=== PATIENT | male | born 1965 | race American Indian/Alaskan Native ===

== ENCOUNTER 2019-10-17 11:00 | Observation (INO) | payer SELFPAY ==
[2019-10-17] MEDS ORDERED: SODIUM CHLORIDE 0.9% 250ML 250 ML IV ONE (11:04)
--- NOTE | 2019-10-17 11:05 | Emergency Department Report ---
ED Neuro Deficit HPI - General Chief Complaint: Weakness Stated Complaint: POSS STROKE Time Seen by Provider: 10/17/19 11:03 Source: patient, EMS (verbal report received from emergency medical services. EMS documentation not available at time of chart dictation ), RN notes reviewed Mode of arrival: Stretcher Limitations: No Limitations - History of Present Illness Initial Comments: The patient is a pleasant right hand dominant gentleman, 54 years old, possible history of hypertension, does not have a local primary care doctor. Brought to the hospital by emergency medical services as a possible code stroke. Last known well time 10:00 in the morning. Accu-Chek within normal limits in the field. Patient denies physical pain. Concerning symptoms include right upper extremity numbness, possible weakness, and possible facial droop. Symptoms are resolved fairly quickly. Patient had indicated that at one point in time, given having intermittent right upper extremity numbness for a few months. -: Sudden Location: right face, right arm History of same: Yes Place: home Worsens With: none On Anticoagulants: No Context: sudden onset - Related Data Home Medications: Home Medications Medication Instructions Recorded Confirmed Last Taken No Known Home Medications [No 10/17/19 10/17/19 Unknown Reported Home Medications] Allergies/Adverse Reactions: Allergies Allergy/AdvReac Type Severity Reaction Status Date / Time No Known Allergies Allergy Unverified 12/12/18 20:27 ED Review of Systems ROS: Stated complaint: POSS STROKE Other details as noted in HPI Constitutional: denies: fever Eyes: denies: eye discharge, vision change ENT: denies: epistaxis, congestion Respiratory: denies: wheezing Cardiovascular: denies: syncope Gastrointestinal: denies: abdominal pain Genitourinary: denies: dysuria Musculoskeletal: denies: back pain Skin: denies: lesions Neurological: weakness Hematological/Lymphatic: denies: easy bleeding ED Past Medical Hx - Social History Smoking Status: Never Smoker Substance Use Type: None - Medications Home Medications: Home Medications Medication Instructions Recorded Confirmed Last Taken Type No Known Home Medications [No 10/17/19 10/17/19 Unknown History Reported Home Medications] ED Neuro Physical Exam - General Limitations: No Limitations General appearance: alert Suspected Stroke: Yes - Head Head exam: Present: atraumatic, normocephalic - Eye Eye exam: Present: normal appearance, EOMI. Absent: nystagmus - ENT ENT exam: Present: normal orophraynx, mucous membranes moist, normal external ear exam, other (there is a small right-sided facial droop. There is no dysphonia. Lucid sentence structure.). Absent: normal exam - Neck Neck exam: Present: normal inspection, full ROM. Absent: tenderness, meningismus - Respiratory Respiratory exam: Present: normal lung sounds bilaterally. Absent: respiratory distress - Cardiovascular Cardiovascular Exam: Present: regular rate, normal rhythm, normal heart sounds. Absent: bradycardia, tachycardia, irregular rhythm, systolic murmur, diastolic murmur, rubs, gallop - GI/Abdominal GI/Abdominal exam: Present: soft. Absent: distended, guarding, rebound, rigid, pulsatile mass - Rectal Rectal exam: Present: deferred - Extremities Exam Extremities exam: Present: normal inspection, full ROM, other (2+ pulses noted in the bilateral upper and lower extremities. There is no palpable cord. negative Homans sign. Muscular compartments are soft. The pelvis is stable.). Absent: pedal edema, joint swelling, calf tenderness - Back Exam Back exam: Present: normal inspection, full ROM. Absent: tenderness, CVA tenderness (R), CVA tenderness (L), paraspinal tenderness, vertebral tenderness - Neurological Exam Neurological exam: Present: alert, oriented X3, other (initially there is a right-sided facial droop. The tongue deviates to the right. Extraocular movements are intact bilaterally. Facial sensation intact to light touch in the bilateral V1, V2, V3 distribution. There is no dysarthria. There is no dysphonia. Hearing is grossly intact.) - NIHSS Assessment Interval: Baseline 1a. Level of Consciousness: alert/keenly responsive 1b. LOC Questions: answers both correctly 1c. LOC Commands: performs tasks correctly 2. Best Gaze: normal 3. Visual: no visual loss 4. Facial Palsy: minor paralysis 5b. Motor Arm Right: no drift 5a. Motor Arm Left: no drift 6a. Motor Leg Left: no drift 6b. Motor Leg Right: no drift 7. Limb Ataxia: absent 8. Sensory: mild/moderate sensory loss 9. Best Language: no aphasia 10. Dysarthria: normal 11. Extinction/Inattention: no abnormality Total Score: 2 Stroke Severity: Minor Stroke - Psychiatric Psychiatric exam: Present: normal affect, normal mood - Skin Skin exam: Present: warm, dry, intact, normal color. Absent: rash ED Course Vital Signs 12/15/19 11:38 Temperature 98 F Pulse Rate 74 Respiratory 16 Rate Blood Pressure 179/108 O2 Sat by Pulse 97 Oximetry - Lab Data Result diagrams: 10/17/19 11:40 Lab Results 10/17/19 10/17/19 10/17/19 Range/Units 11:27 11:40 11:40 WBC 4.2 L (4.5-11.0) K/mm3 RBC 5.20 H (3.65-5.03) M/mm3 Hgb 15.3 H (11.8-15.2) gm/dl Hct 44.8 (35.5-45.6) % MCV 86 (84-94) fl MCH 29 (28-32) pg MCHC 34 (32-34) % RDW 14.0 (13.2-15.2) % Plt Count 160 (140-440) K/mm3 Lymph % (Auto) 45.6 H (13.4-35.0) % [place] % (Auto) 7.2 (0.0-7.3) % Eos % (Auto) 1.3 (0.0-4.3) % Baso % (Auto) 1.3 (0.0-1.8) % Lymph # 1.9 (1.2-5.4) K/mm3 [place] # 0.3 (0.0-0.8) K/mm3 Eos # 0.1 (0.0-0.4) K/mm3 Baso # 0.1 (0.0-0.1) K/mm3 Seg Neutrophils % 44.6 (40.0-70.0) % Seg Neutrophils # 1.9 (1.8-7.7) K/mm3 POC Glucose 82 (70-105) Plasma/Serum Alcohol < 0.01 (0-0.07) % - EKG Data -: EKG Interpreted by Or EKG shows normal: sinus rhythm Rate: normal 10/17/19 12:11 The EKG today shows a sinus rhythm, 78 bpm, there is a normal axis, the QTC is within normal limits, there is left ventricular hypertrophy, motion artifact, the EKG is abnormal, not consistent with ST elevation myocardial infarction. The EKG today is unchanged from prior EKG from December 2018. - Radiology Data Radiology results: report reviewed, image reviewed Noncontrast CT scan of the brain is negative for acute disease. - Medical Decision Making Differential diagnosis, including but not limited to: TIA, multiple sclerosis, stroke, cervical radiculopathy, trigeminal neuralgia Assessment and plan: 54-year-old gentleman with right-sided facial droop, right upper extremity numbness and possible weakness. Initially NIH score is 2 on my examination. Neurologic symptoms resolved at this point in time. Current NIH score is 0. He is not a TPA candidate at this time. As part of this department's protocol, we have requested emergency stroke neurology consultation, and he was evaluated by Dr. Toby Omalley, who agreed that patient was not a TPA candidate and did not require emergent endovascular imaging. We've recommended admission to the medical service for TIA workup. Aspirin ordered. Hospital physician, Dr. Levy has accepted care of the patient. Discussed this plan of care with the patient who verbalized understanding, and who is amenable to this plan of care. - Core Measures Measure Exclusions: not indicated - Thrombolytic Inclusion/Exclusion Thrombolytic Contraindications: Rapidily Improving s/s Critical care attestation.: If time is entered above; I have spent that time in minutes in the direct care of this critically ill patient, excluding procedure time. ED Disposition Clinical Impression: TIA (transient ischemic attack) Disposition: DC-09 OP ADMIT IP TO THIS HOSP Is pt being admited?: Yes Does the pt Need Aspirin: Yes Condition: Stable
--- NOTE | 2019-10-17 11:25 | Progress Note ---
Subjective Date of service: 10/17/19 Interval history: see my note about talking with EMS [facility] and the CT scan review at time of stroke alert... the BP largely elevated remainder of EMS assessment normal BP appears to be issue remainer of w/u is pending will follow up Thanks spoke to EMT's
--- NOTE | 2019-10-17 11:29 | Cat Scan Report ---
CT BRAIN: 10/17/2019 INDICATION / CLINICAL INFORMATION: Stroke symptoms. Right-sided weakness COMPARISON: None available. FINDINGS: BRAIN/INTRACRANIAL STRUCTURES: Unenhanced CT images of the brain demonstrate no evidence of acute int racranial abnormality. Ventricles and sulci are normal in size and shape. There is no evidence of ischemic injury, hemorrhage, or mass. There are no abnormal extra-axial fluid collections. EXTRACRANIAL STRUCTURES: Unremarkable. IMPRESSION: Negative unenhanced CT of the brain. These findings were discussed with Dr Lemos . in the emergency department at [address] scans at this location are performed using dose reduction to ALARA by means of automated expos ure control. Signer Name: Felipe Lorenz MD Signed: 10/17/2019 11:24 AM Workstation Name: [id number]
--- NOTE | 2019-10-17 11:38 | Emergency Department Report ---
ED Neuro Deficit HPI - General Chief Complaint: Neuro Symptoms/Deficit Stated Complaint: POSS STROKE Time Seen by Provider: 10/17/19 11:03 Source: patient - History of Present Illness Initial Comments: [employer] TeleStroke Metrics: LKW: 0930 Door Time: 1100 [employer] Contacted: 1103 [employer] at Bedside: 1113 NIHSS: 1118 Decision on Alteplase: Not to give as the patient's NIH stroke scale score is currently 0. Interventional Candidate: Not a candidate as his symptoms are not consistent with a large vessel proximal occlusion. Chief Complaint: Right arm numbness HPI: Asked to see this patient in emergent telemedicine consultation utilizing interactive audio and video technologies. Consultation was performed with assistance of ancillary / medical staff at bedside. Verbal consent to perform the examination with telemedicine was obtained. Patient agreed to proceed with the consultation for acute stroke protocol. 54-year-old right-handed -[place] male who comes to the emergency room by EMS as a stroke alert for right arm numbness. Patient does not take any aspirin or medications at baseline. He denies any past medical history. Patient did report that over the last several months, he has had intermittent right arm numbness. He denies any obvious provoking factors. He denies any current neck pain or recent neck trauma. Patient states that around 9:30 AM this morning, he was taking a shower when he again had some right arm and hand numbness. He did not notice any focal weakness. No speech problems. When he arrived in the ER, the ER attending noted some possible right facial asymmetry, right arm incoordination, and right arm numbness. NIH stroke scale score initially was possibly 3. Upon my evaluation, the patient has no further focal motor or sensory deficits. No aphasia. Head CT is negative. PMH: Possible hypertension SOC: Negative x3. Patient lives with family. 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 FMH: Negative for stroke. ROS: 13 point review of systems were reviewed with the patient, and are all negative with the exception of the aforementioned in the history of present illness. VS: Blood pressure 183/111, respirations 16, pulse 87, oxygen saturation 98% Exam: Patient is in no apparent distress. Patient appears as stated age. No obvious acute respiratory or cardiac distress. Patient is well groomed and well-nourished. 1a- LOC: Keenly responsive - 0 1b- LOC questions: Answers both questions correctly - 0 1c- LOC commands- Performs both tasks correctly- 0 2- Gaze: Normal; no gaze paresis or gaze deviation - 0 3- Visual [place]: normal, no Visual field deficit - 0 4- Facial movements: no facial palsy - 0 5- Upper limb motor - no drift - 0 6- Lower limb motor - no drift - 0 7- Limb Coordination: absent ataxia - 0 8- Sensory: no sensory loss - 0 9- Language - No aphasia - 0 10- Speech - No dysarthria -0 11- Neglect / Extinction - none found - 0 NIHSS score: 0 Diagnostic Data: CT of the head showed no acute intracranial process Blood glucose 82 Medical Data Reviewed: 1.Data?reviewed include clinical labs, radiology,?and medical tests; 2.Tests?results discussed w/performing or interpreting physician; 3.Obtaining/reviewing old medical records; 4.Obtaining?case history from another source; 5.Independent?review of image, tracing, or specimen. Medical Decision Making: - Extensive number of diagnosis or management options are considered below. - Extensive amount of complex data reviewed. - High risk of complication and/or morbidity or mortality are associated with differential diagnostic considerations below. - There may be?uncertain?outcome and increased probability of prolonged functional impairment or high probability of severe prolonged functional impairment associated with some of these differential diagnosis. Differential Diagnosis for Stroke: 1.?Cardioembolic?stroke 2. Small vessel disease/lacune 3. Thromboembolic, [id number] mechanism 4.?Hypercoagulable?state-related infarct 5. Transient ischemic attack 6. Thrombotic mechanism, large artery disease Assessment: 1. Possible left MCA TIA/stroke 2. Hypertension Recommendations: Patient can be admitted to the hospital for further work-up of his symptoms. Start the patient on aspirin 325 mg daily. Allow permissive hypertension. Check MRI brain without contrast to rule out any acute intracranial process. Check CTA of the head and neck to evaluate his intracranial and extracranial blood vessels if renal function permits. If unable to do CTA, they can do MRA of the head and neck without contrast. Could also consider a MRI of the cervical spine without contrast to rule out any cervical cord pathology given he has been having symptoms in his right arm over the last several months. Check echocardiogram to gauge his cardiac function. Maintain the patient on telemetry to look for paroxysmal atrial fibrillation. Check hemoglobin A1c and lipid panel. Consult PT, OT, and ST. Continue supportive care. Plan of care was discussed with the patient. Thank you for allowing [employer] to participate in the care of your patient. Please call me, Dr. Segovia, with any questions at [phone]. Case discussed with the ER staff and Dr. Lemos. Critical Care notation: I was called to see this critical patient emergently. I personally evaluated this critical patient for acute stroke evaluation, and determining their eligibility for IV Alteplase and interventional therapies. I have spent approximately 10 minutes with the patient, including time at bedside, time discussing the case with other physicians, reviewing plan of care, and time independently reviewing the records and scans. - Related Data Home Medications: Home Medications Medication Instructions Recorded Confirmed Last Taken No Known Home Medications [No 10/17/19 10/17/19 Unknown Reported Home Medications] Allergies/Adverse Reactions: Allergies Allergy/AdvReac Type Severity Reaction Status Date / Time No Known Allergies Allergy Unverified 12/12/18 20:27 ED Review of Systems ROS: Stated complaint: POSS STROKE Other details as noted in HPI ED Past Medical Hx - Social History Smoking Status: Never Smoker Substance Use Type: None - Medications Home Medications: Home Medications Medication Instructions Recorded Confirmed Last Taken Type No Known Home Medications [No 10/17/19 10/17/19 Unknown History Reported Home Medications] ED Neuro Physical Exam - General General appearance: alert, in no apparent distress Suspected Stroke: Yes - NIHSS Assessment Interval: Baseline 1a. Level of Consciousness: alert/keenly responsive 1b. LOC Questions: answers both correctly 1c. LOC Commands: performs tasks correctly 2. Best Gaze: normal 3. Visual: no visual loss 4. Facial Palsy: normal symmetrical movement 5b. Motor Arm Right: no drift 5a. Motor Arm Left: no drift 6a. Motor Leg Left: no drift 6b. Motor Leg Right: no drift 7. Limb Ataxia: absent 8. Sensory: normal 9. Best Language: no aphasia 10. Dysarthria: normal 11. Extinction/Inattention: no abnormality Total Score: 0 Stroke Severity: No Stroke Symptoms - Lab Data Lab Results 10/17/19 Range/Units 11:27 POC Glucose 82 (70-105) Critical care attestation.: If time is entered above; I have spent that time in minutes in the direct care of this critically ill patient, excluding procedure time. ED Disposition Clinical Impression: TIA (transient ischemic attack) Disposition: DC-09 OP ADMIT IP TO THIS HOSP Is pt being admited?: Yes Does the pt Need Aspirin: Yes Condition: Stable
[2019-10-17 11:57] LABS: Basophils # (Auto) 0.1 K/mm3 (0.0-0.1); Basophils % (Auto) 1.3 % (0.0-1.8); Eosinophils # (Auto) 0.1 K/mm3 (0.0-0.4); Eosinophils % (Auto) 1.3 % (0.0-4.3); Hematocrit 44.8 % (35.5-45.6); Hemoglobin 15.3 gm/dl (11.8-15.2); Lymphocytes # (Auto) 1.9 K/mm3 (1.2-5.4); Lymphocytes % (Auto) 45.6 % (13.4-35.0); Mean Corpuscular HGB Conc 34 % (32-34); Mean Corpuscular Volume 86 fl (84-94); Monocytes # (Auto) 0.3 K/mm3 (0.0-0.8); Monocytes % (Auto) 7.2 % (0.0-7.3); Platelet Count 160 K/mm3 (140-440)
[2019-10-17 12:10] LABS: INR 1.04 (0.87-1.13); Partial Thromboplastin Time 26.9 Sec. (24.2-36.6); Thrombin Time 14.8 Sec. (15.1-19.6)
[2019-10-17] MEDS ORDERED: ASPIRIN 81 MG TAB CHEW PO ONE (12:13)
[2019-10-17 12:17] LABS: Creatine Kinase MB 1.5 ng/mL (0.0-4.0)
[2019-10-17 12:18] LABS: Alanine Aminotransferase 7 units/L (7-56); Albumin 4.3 g/dL (3.9-5); BUN/Creatinine Ratio 15; Blood Urea Nitrogen 16 mg/dL (9-20); Calcium 9.3 mg/dL (8.4-10.2); Hemolysis Index 5
[2019-10-17] MEDS ORDERED: hydroCHLOROthiazide 25 MG TAB PO ONE (13:10)
[2019-10-17] MEDS ORDERED: amLODIPine 5 MG TAB PO ONE (13:10)
--- NOTE | 2019-10-17 13:41 | XRay Report ---
CERVICAL SPINE, 5 VIEWS INDICATION / CLINICAL INFORMATION: weakness. COMPARISON: None available. FINDINGS: Vertebral body heights and disc spaces are well-preserved. Prominent anterior osteophytes are present at C5-C7. No visible fracture or malalignment noted. IMPRESSION: 1. Mildly prominent anterior osteophytes, C5-C7. 2. No other significant osseous abnormality. Signer Name: Marlene Grayson MD Signed: 10/17/2019 1:36 PM Workstation Name: [id number]
[2019-10-17] MEDS ORDERED: hydrALAZINE 20 MG/1 ML INJ ONE (13:57)
[2019-10-17] MEDS ORDERED: hydrALAZINE 20 MG/1 ML INJ IV ONE (13:59)
[2019-10-17 14:06] VITALS: BP 154/81
--- NOTE | 2019-10-17 14:12 | Progress Note ---
Subjective Date of service: 10/17/19 Interval history: please note that the CT reading from radiology cocurs with stat opinion at time of the stroke alert. advise Tx HTN Objective - Vital Sign Vital Signs - 12hr 10/17/19 10/17/19 10/17/19 11:38 12:15 14:01 Temperature 98 F Pulse Rate 74 74 Respiratory 16 16 Rate Blood Pressure 179/108 171/108 Blood Pressure 172/109 [Left] O2 Sat by Pulse 97 96 Oximetry 10/17/19 14:04 Temperature Pulse Rate 84 Respiratory 16 Rate Blood Pressure Blood Pressure 154/81 [Left] O2 Sat by Pulse 99 Oximetry - Laboratory Findings CBC and BMP: 10/17/19 11:40 10/17/19 11:40 Abnormal Lab Findings: Abnormal Labs 10/17/19 10/17/19 10/17/19 11:40 11:40 11:40 WBC 4.2 L RBC 5.20 H Hgb 15.3 H Lymph % (Auto) 45.6 H Thrombin Time 14.8 L Carbon Dioxide 19 L
--- NOTE | 2019-10-17 14:24 | Event Note ---
Date: 10/17/19 54 YO Male with HTN, Medication Noncompliance presents to ED for evaluation. Pt states that he experienced Right arm numbness, tingling while taking a shower this morning. Pt walked out of the shower and notified EMS. Pt states that he was concerned that he may be having a stroke. EMS notified and upon arrival a code stroke was called. The patient was transported to [facility]. Pt seen and evaluated in ED. Pt was found to have Uncontrolled HTN due to medication noncompliance. Pt did not have any neurologic deficit. Pt symptoms resolved in transit to hospital. Teleneurology consulted in ED. Pt found to have symptoms consistent with Radiculopathy. Pt medically optimized and treated with antihypertensive therapy. Pt discharged home and instructed to f/u pcp 3-5 days with blood pressure log. Pt counseled regarding Cardiovascular disease risk reduction. Pt counseled regarding balanced diet, increased physical activity. Pt discharged on antiplatelet therapy and counseled to have age appropriate screening as per PCP. - General Limitations: No Limitations General appearance: WNWD, No acute distress, Pt resting in bed playing a game on his smartphone while holding the phone in both hands. - Head Head exam: Present: atraumatic, normocephalic - Eye Eye exam: Present: normal appearance, EOMI. Absent: nystagmus - ENT ENT exam: Present: normal orophraynx, mucous membranes moist, normal external ear exam, There is no dysphonia. Lucid sentence structure.).: normal exam - Neck Neck exam: Present: normal inspection, full ROM. Absent: tenderness, meningismus - Respiratory Respiratory exam: Present: normal lung sounds bilaterally. Absent: respiratory distress - Cardiovascular Cardiovascular Exam: Present: regular rate, normal rhythm, normal heart sounds. Absent: bradycardia, tachycardia, irregular rhythm, systolic murmur, diastolic murmur, rubs, gallop - GI/Abdominal GI/Abdominal exam: Present: soft. Absent: distended, guarding, rebound, rigid, pulsatile mass - Rectal Rectal exam: Present: deferred - Extremities Exam Extremities exam: Present: normal inspection, full ROM, other (2+ pulses noted in the bilateral upper and lower extremities. There is no palpable cord. negative Homans sign. Muscular compartments are soft. The pelvis is stable.). Absent: pedal edema, joint swelling, calf tenderness - Back Exam Back exam: Present: normal inspection, full ROM. Absent: tenderness, CVA tenderness (R), CVA tenderness (L), paraspinal tenderness, vertebral tenderness - Neurological Exam Neurological exam: Present: alert, oriented X3,. Extraocular movements are intact bilaterally. Facial sensation intact to light touch in the bilateral V1, V2, V3 distribution. There is no dysarthria. There is no dysphonia. Hearing is grossly intact.) CN 2-12 intact. No focal deficit. - Psychiatric Psychiatric exam: Present: normal affect, normal mood - Skin Skin exam: Present: warm, dry, intact, normal color. Absent: rash
--- NOTE | 2019-10-17 17:26 | Consultation ---
History of Present Illness Consult date: 10/17/19 Reason for Consult: Stroke History of present illness: [facility] Date of Service: 10/17/2019 16:18:25 Impression: RO Acute Ischemic Stroke Comments: not iv tpa candidate as recurrence of sxs from prior to 1100 am, with lkw greater than 4.5 hrs and resolution of sxs again. Low suspicion for large vessel occlusive disease Metrics: Last Known Well: 10/17/2019 11:00:00 [facility] Notification Time: 10/17/2019 16:16:13 Arrival Time: 10/17/2019 14:56:00 Stamp Time: 10/17/2019 16:18:25 Time First Login Attempt: 10/17/2019 16:26:00 Video Start Time: 10/17/2019 16:26:00 Symptoms: N/V/AMS NIHSS Start Assessment Time: 10/17/2019 16:29:00 Patient is not a candidate for tPA. Patient was not deemed candidate for tPA thrombolytics because of Last Well Known Above 4.5 Hours. Video End Time: 10/17/2019 16:37:00 CT head showed evolving subcortical stroke in left hemisphere. Advanced imaging will be obtained to evaluate intracranial/extracranial vessels. ER Physician notified of the decision on thrombolytics management on 10/17/2019 16:38:00 Our recommendations are outlined below. Recommendations: Activate Stroke Protocol Admission/Order Set Stroke/Telemetry Floor Neuro Checks Bedside Swallow Eval DVT Prophylaxis IV Fluids, Normal Saline Head of Bed Below 30 Degrees Euglycemia and Avoid Hyperthermia (PRN Acetaminophen) Antiplatelet Therapy Recommended iv fluids, telemetry, prn meds for nausea Recommended Scan: MRI Head Without Contrast MRA Head Without Contrast Carotid Dopplers Echocardiogram - Transthoracic Echocardiogram Lipid Panel to Be Obtained, if Not Done in the Last Three Months Therapies: Physical Therapy, Occupational Therapy, Speech Therapy Assessment When Applicable Dysphaghia Screen: Swallow Evaluation, Bedside NPO Until Swallow Evaluation DVT prophylaxis: Choice of Primary Team Disposition: If needed consider Follow up with Neurology as inpatient. Sign Out: Discussed with Emergency Department Provider History of Present Illness: Patient is a 54 year old Male. Patient was brought by EMS for symptoms of N/V/AMS Patient was seen as a stroke this am with R sided weakness/numbness and nausea/vomiting. He had resolution of sxs and CT scan head was negative and he was d/c'd him. He had nausea/vomiting and R sided sxs again with confusion and EMS was called to the house. BP 113/76, pulse of 76, and BGL 162, and in ED bp 100/64. He had projectile vomit in ED and has now near resolution of sxs again. He is able to state his name, month, where he is, follow all commands, repeat statement and name objects. He provides no additional hx as to whether he has abraham/cp/neck pain/dizziness. CT head showed no acute hemorrhage or acute core infarct. Examination: BP(see hpi), Pulse(see hpi), Blood Glucose(see hpi) 1A: Level of Consciousness - Alert; keenly responsive + 0 1B: Ask Month and Age - Both Questions Right + 0 1C: Blink Eyes & Squeeze Hands - Performs Both Tasks + 0 2: Test Horizontal Extraocular Movements - Normal + 0 3: Test Visual Malone - No Visual Loss + 0 4: Test Facial Palsy (Use Grimace if Obtunded) - Normal symmetry + 0 5A: Test Left Arm Motor Drift - No Drift for 10 Seconds + 0 5B: Test Right Arm Motor Drift - No Drift for 10 Seconds + 0 6A: Test Left Leg Motor Drift - No Drift for 5 Seconds + 0 6B: Test Right Leg Motor Drift - No Drift for 5 Seconds + 0 7: Test Limb Ataxia (FNF/Heel-Alegria) - No Ataxia + 0 8: Test Sensation - Normal; No sensory loss + 0 9: Test Language/Aphasia - Normal; No aphasia + 0 10: Test Dysarthria - Normal + 0 11: Test Extinction/Inattention - No abnormality + 0 NIHSS Score: 0 Patient was informed the Neurology Consult would happen via TeleHealth consult by way of interactive audio and video telecommunications and consented to receiving care in this manner. Due to the immediate potential for life-threatening deterioration due to underlying acute neurologic illness, I spent 35 minutes providing critical care. This time includes time for face to face visit via telemedicine, review of medical records, imaging studies and discussion of findings with providers, the patient and/or family. Dr Chanel Sharma [facility] Case [id number] Medications and Allergies Allergies Allergy/AdvReac Type Severity Reaction Status Date / Time No Known Allergies Allergy Unverified 12/12/18 20:27 Home Medications Medication Instructions Recorded Confirmed Last Taken Type Aspirin 325 mg PO QDAY #30 tablet 10/17/19 Unknown Rx Ibuprofen [Motrin] 400 mg PO Q8H PRN #24 tablet 10/17/19 Unknown Rx Simvastatin 20 mg PO QHS #30 tablet 10/17/19 Unknown Rx amLODIPine 5 mg PO DAILY #30 tab 10/17/19 Unknown Rx hydroCHLOROthiazide [Hctz] 12.5 mg PO QDAY #30 capsule 10/17/19 Unknown Rx Physical Examination - Vital Signs Vital Signs: Vital Signs Temp Pulse Resp BP Pulse Ox 98 F 74 16 179/108 97 10/17/19 11:38 10/17/19 11:38 10/17/19 11:38 10/17/19 11:38 10/17/19 11:38 Results - Laboratory Findings CBC and BMP: 10/17/19 11:40 10/17/19 11:40 Abnormal Lab Findings: Abnormal Labs 10/17/19 10/17/19 10/17/19 11:40 11:40 11:40 WBC 4.2 L RBC 5.20 H Hgb 15.3 H Lymph % (Auto) 45.6 H Thrombin Time 14.8 L Carbon Dioxide 19 L
--- NOTE | 2019-10-18 10:59 | Consultation ---
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 The patient was admitted to the hospital at this time through the Emergency Room. He is admitted because of the sudden onset of slurred speech, dizziness, right-sided weakness. He apparently gotten up this morning and unobserved, began to abruptly have problems with balance, numbness, weakness, slight degree of slurred speech. EMS was called. On presentation, the EMS worker stated to me that there were no residual neurological findings. He was completely recovered at that time he was seen. He was transferred to the hospital. His blood sugars were normal. His blood pressure was elevated at 197/120. Further evaluation during that period of time did not reveal any cardiac irregularities. His pulse oximeter was normal. His blood sugar was normal. Evaluation on stroke scale was 0 during that assessment. The patient seen at the time of the stroke alert. No neurological findings are currently present. Benign exam. Cranial nerves intact. No drift. Moves well. Speech is clear, oriented. I did review his CT scan of the brain immediately at the time of the assessment. I did not see any focal abnormalities. Dinero and white matter were normal. Pineal gland in the midline. No evidence of any edema, hemorrhage was noted. At this point, the CT scan is entirely clear. We would recommend further workup including electrolytes, CBC, and diff, formal EKG and more comprehensive ED stroke evaluation. At this point, the patient's condition appears stable. May proceed to further workup at this point. JOB# [id number] CAROLANN/TRUPTI
== END 2019-10-17 16:05 | disposition home or self-care (01) ==
LOC: ED 11:00 → 3A 12:26
PROVIDERS: ADMIT Internal Medicine; ATTEND Internal Medicine
DX: G45.9 Transient cerebral ischemic attack, unspecified (principal); I10 Essential (primary) hypertension
CPT/HCPCS: 36415; 70450; 72040; 80053; 82550; 82553; 82962; 84484; 85025; 85610; 85670; 85730; 93005; 93010; 96374; 99284; G0378; J0360; 80320; G0480

== ENCOUNTER 2019-10-17 16:13 | Inpatient (IN) | payer OTHER ==
--- NOTE | 2019-10-17 16:27 | Emergency Department Report ---
- General Stated complaint: POSS STROKE Time Seen by Provider: 10/17/19 16:20 Source: patient Mode of arrival: Stretcher Limitations: Physical Limitation - History of Present Illness Initial comments: Patient is a 54-year-old male that presents emergency with complaints of right- sided weakness and slurred speech and right-sided facial droop. Patient states his symptoms started approximately 4.5 hours ago resolved and then came back. Patient states she was here today and discharged home from the ER. Patient denies chest pain. Patient denies shortness of breath. Patient states his symptoms are slowly improving with time. Patient states his weakness is better with rest. MD Complaint: focal weakness -: Sudden Location: RUE, RLE, R face Severity: severe Consistency: constant Improves with: rest, other Worsens with: movement Associated Symptoms: denies: chest pain, confusion, dark stools, diaphoresis, dysuria, easy bruising, fever/chills, headaches, loss of appetite, nausea/vomiting, myalgias, rash, shortness of breath, syncope - Related Data Previous Rx's Medication Instructions Recorded Last Taken Type Aspirin 325 mg PO QDAY #30 tablet 10/17/19 Unknown Rx Simvastatin 20 mg PO QHS #30 tablet 10/17/19 Unknown Rx amLODIPine 5 mg PO DAILY #30 tab 10/17/19 Unknown Rx hydroCHLOROthiazide [Hctz] 12.5 mg PO QDAY #30 capsule 10/17/19 Unknown Rx Allergies Allergy/AdvReac Type Severity Reaction Status Date / Time No Known Allergies Allergy Unverified 12/12/18 20:27 ED Review of Systems ROS: Stated complaint: POSS STROKE Other details as noted in HPI Constitutional: weakness. denies: chills, fever Eyes: denies: eye pain, eye discharge, vision change ENT: denies: ear pain, throat pain Respiratory: denies: cough, shortness of breath, wheezing Cardiovascular: denies: chest pain, palpitations Endocrine: no symptoms reported Gastrointestinal: denies: abdominal pain, nausea, diarrhea Genitourinary: denies: urgency, dysuria Musculoskeletal: denies: back pain, joint swelling, arthralgia Skin: denies: rash, lesions Neurological: weakness. denies: headache, paresthesias Psychiatric: denies: anxiety, depression Hematological/Lymphatic: denies: easy bleeding, easy bruising ED Past Medical Hx - Past Medical History Previous Medical History?: Yes Hx Hypertension: Yes - Surgical History Past Surgical History?: No - Family History Family history: no significant - Social History Smoking Status: Never Smoker Substance Use Type: None - Medications Home Medications: Home Medications Medication Instructions Recorded Confirmed Last Taken Type Aspirin 325 mg PO QDAY #30 tablet 10/17/19 10/17/19 Unknown Rx Simvastatin 20 mg PO QHS #30 tablet 10/17/19 10/17/19 Unknown Rx amLODIPine 5 mg PO DAILY #30 tab 10/17/19 10/17/19 Unknown Rx hydroCHLOROthiazide [Hctz] 12.5 mg PO QDAY #30 capsule 10/17/19 10/17/19 Unknown Rx ED Physical Exam - General Limitations: No Limitations General appearance: alert, in no apparent distress - Head Head exam: Present: atraumatic, normocephalic - Eye Eye exam: Present: normal appearance, PERRL Pupils: Present: normal accommodation - ENT ENT exam: Present: mucous membranes moist - Neck Neck exam: Present: normal inspection - Respiratory Respiratory exam: Present: normal lung sounds bilaterally. Absent: respiratory distress, wheezes, rales - Cardiovascular Cardiovascular Exam: Present: regular rate, normal rhythm. Absent: systolic murmur, diastolic murmur, rubs, gallop - GI/Abdominal GI/Abdominal exam: Present: soft, normal bowel sounds - Rectal Rectal exam: Present: deferred - Extremities Exam Extremities exam: Present: normal inspection - Back Exam Back exam: Present: normal inspection - Neurological Exam Neurological exam: Present: alert, oriented X3 - Psychiatric Psychiatric exam: Present: normal affect, normal mood - Skin Skin exam: Present: warm, dry, intact, normal color. Absent: rash - Assessment Assessment Interval: Baseline - Level of Consciousness 1a. Level of Consciousness: alert/keenly responsive - LOC Questions 1b. LOC Questions: answers both correctly - LOC Command 1c. LOC Commands: performs tasks correctly - Best Gaze 2. Best Gaze: normal - Visual 3. Visual: no visual loss - Facial Palsy 4. Facial Palsy: minor paralysis - Motor Arm 5a. Motor Arm Left: no drift 5b. Motor Arm Right: no drift - Motor Leg 6a. Motor Leg Left: no drift 6b. Motor Leg Right: no drift - Limb Ataxia 7. Limb Ataxia: absent - Sensory 8. Sensory: normal - Best Language 9. Best Language: no aphasia - Dysarthria 10. Dysarthria: mild/moderate dysarthria - Extinction and Inattention 11. Extinction/Inattention: no abnormality - Scoring Total Score: 2 Stroke Severity: Minor Stroke ED Course Vital Signs 10/17/19 10/17/19 10/17/19 16:30 16:31 16:45 Temperature 98.9 F Pulse Rate 91 H 75 Respiratory 18 Rate Blood Pressure 100/58 100/64 105/62 Blood Pressure 108/64 [Right] O2 Sat by Pulse 100 Oximetry 10/17/19 10/17/19 10/17/19 17:16 17:30 17:45 Temperature Pulse Rate 88 75 77 Respiratory Rate Blood Pressure 95/63 100/54 104/58 Blood Pressure [Right] O2 Sat by Pulse 95 Oximetry 10/17/19 10/17/19 10/17/19 18:00 18:18 18:30 Temperature Pulse Rate 65 86 80 Respiratory 21 25 H Rate Blood Pressure 102/65 102/65 102/65 Blood Pressure [Right] O2 Sat by Pulse 96 96 99 Oximetry 10/17/19 10/17/19 10/17/19 18:46 19:00 19:15 Temperature Pulse Rate 85 79 73 Respiratory 12 20 18 Rate Blood Pressure 119/77 127/84 133/82 Blood Pressure [Right] O2 Sat by Pulse 93 98 99 Oximetry 10/17/19 10/17/19 10/17/19 19:30 19:40 19:50 Temperature Pulse Rate 75 76 77 Respiratory 17 17 20 Rate Blood Pressure 142/83 127/84 152/92 Blood Pressure [Right] O2 Sat by Pulse 97 98 96 Oximetry 10/17/19 10/17/19 10/17/19 20:00 20:10 20:20 Temperature Pulse Rate 75 69 91 H Respiratory 17 14 19 Rate Blood Pressure 152/92 142/94 145/88 Blood Pressure [Right] O2 Sat by Pulse 93 93 89 Oximetry 10/17/19 10/17/19 10/17/19 20:30 20:40 20:50 Temperature Pulse Rate 81 82 78 Respiratory 22 19 17 Rate Blood Pressure 145/88 151/89 149/87 Blood Pressure [Right] O2 Sat by Pulse 98 97 90 Oximetry 10/17/19 21:00 Temperature Pulse Rate 86 Respiratory 18 Rate Blood Pressure 149/87 Blood Pressure [Right] O2 Sat by Pulse 81 L Oximetry - Reevaluation(s) Reevaluation #1: I discussed all results with patient. Patient agrees with plan of care. Patient will be admitted to the hospitalist service. 10/17/19 19:02 - Consultations Consultation #1: Hospitalist consultation for admission. Hospitalist the patient. 10/17/19 19:01 ED Medical Decision Making - Lab Data Result diagrams: 10/17/19 18:02 10/17/19 16:45 - EKG Data -: EKG Interpreted by Me EKG shows normal: sinus rhythm, axis, intervals, QRS complexes, ST-T waves Rate: normal - Radiology Data Radiology results: report reviewed NECK CT ANGIOGRAM 10/17/2019 HISTORY: Weakness. FINDINGS: Contrast-enhanced CT angiographic images of the neck were obtained. In addition to the axial images, sagittal and coronal reformatted images were obtained. In addition, 3 plane MIP reconstructions were produced. NASCET like criteria were used in this hossein luation. The carotid bifurcations demonstrate no evidence of carotid bifurcation stenosis or significant abnormality. Internal and common carotid arteries are unremarkable. Vertebral arteries are relatively hypoplastic on a developmental basis, but otherwise unremarkable. Visualized portions of the aortic arch are unremarkable. IMPRESSION: No significant abnormality. No evidence of carotid bifurcation stenosis. HEAD CT ANGIOGRAM 10/17/2019 HISTORY: Weakness FINDINGS: Contrast-enhanced CT angiographic images of the intracranial circulation were obtained. In addition to the axial images, sagittal and coronal reformatted images were obtained. In addition, 3 plane MIP reconstructions were produced. There is no evidence of acute abnormality. Vascular contours are unremarkable the level of the skull base and [place] of [place]. There is no evidence of vessel occlusion or significant stenosis. Vertebral basilar system is unremarkable. The basilar artery is relatively hypoplastic on a developmental basis, with prominent bilateral posterior communicating arteries noted. This is a normal variant. IMPRESSION: No significant abnormality. CT BRAIN: 10/17/2019 at 1620 hours ET INDICATION / CLINICAL INFORMATION: neuro deficits <6hrs or sx present upon awakening. COMPARISON: CT brain 10/17/2019 at 1107 hours ET FINDINGS: BRAIN/INTRACRANIAL STRUCTURES: Unenhanced CT images of the brain were obtained and compared to the exam obtained 5 hours earlier. There has been interval development of visible hypoattenuation in the region of the left centrum semiovale and upper internal capsule, consistent with early evolving subcortical ischemic changes. There is no evidence of hemorrhage. The brain parenchyma is otherwise normal. There is no evidence of mass effect at this time. There are no abnormal extra-axial fluid collections. EXTRACRANIAL STRUCTURES: Unremarkable. IMPRESSION: Findings consistent with evolving left sided subcortical infarct. - Medical Decision Making Patient is a 54-year-old mellitus emergency room for second time today with strokelike symptoms. Patient's was discharged earlier from the ER with similar symptoms. Patient returned and had a CT done which shows evolving stroke. Neurology was consulted and recommendations were received. Neurology recommended CTAs. CTA of the head and neck were negative for acute findings. Patient admitted to the hospitalist service. Patient's labs essentially unremarkable. - Differential Diagnosis CVA, weakness, slurred speech, facial droop Critical Care Time: Yes Critical care time in (mins) excluding proc time.: 35 Critical care attestation.: If time is entered above; I have spent that time in minutes in the direct care of this critically ill patient, excluding procedure time. Critical Care Time: 35 minutes ED Disposition Clinical Impression: Weakness, Right sided weakness, Facial droop Stroke (cerebrum) Qualifiers: CVA mechanism: unspecified Qualified Code(s): I63.9 - Cerebral infarction, unspecified Disposition: DC-09 OP ADMIT IP TO THIS HOSP Is pt being admited?: Yes Does the pt Need Aspirin: No Condition: Critical Time of Disposition: 19:01
--- NOTE | 2019-10-17 17:01 | Cat Scan Report ---
CT BRAIN: 10/17/2019 at 1620 hours ET INDICATION / CLINICAL INFORMATION: neuro deficits <6hrs or sx present upon awakening. COMPARISON: CT brain 10/17/2019 at 1107 hours ET FINDINGS: BRAIN/INTRACRANIAL STRUCTURES: Unenhanced CT images of the brain were obtained and compared to the ex am obtained 5 hours earlier. There has been interval development of visible hypoattenuation in the re gion of the left centrum semiovale and upper internal capsule, consistent with early evolving subcort ical ischemic changes. There is no evidence of hemorrhage. The brain parenchyma is otherwise normal. There is no evidence of mass effect at this time. There are no abnormal extra-axial fluid collections. EXTRACRANIAL STRUCTURES: Unremarkable. IMPRESSION: Findings consistent with evolving left sided subcortical infarct. All CT scans at this location are performed using dose reduction to ALARA by means of automated expos ure control. Signer Name: Felipe Lorenz MD Signed: 10/17/2019 4:57 PM Workstation Name: [id number]
[2019-10-17 18:01] LABS: BUN/Creatinine Ratio 11; Blood Urea Nitrogen 18 mg/dL (9-20); Calcium 9.6 mg/dL (8.4-10.2); Hemolysis Index 44
[2019-10-17 18:06] LABS: INR 1.02 (0.87-1.13)
[2019-10-17 18:07] LABS: Partial Thromboplastin Time 21.1 Sec. (24.2-36.6)
[2019-10-17 18:07] LABS: Hematocrit 44.8 % (35.5-45.6); Hemoglobin 15.2 gm/dl (11.8-15.2); Mean Corpuscular HGB Conc 34 % (32-34); Mean Corpuscular Volume 87 fl (84-94); Platelet Count 174 K/mm3 (140-440); Red Blood Count 5.15 M/mm3 (3.65-5.03); Red Cell Distribution Width 14.2 % (13.2-15.2)
--- NOTE | 2019-10-17 18:55 | Cat Scan Report ---
NECK CT ANGIOGRAM 10/17/2019 HISTORY: Weakness. FINDINGS: Contrast-enhanced CT angiographic images of the neck were obtained. In addition to the axia l images, sagittal and coronal reformatted images were obtained. In addition, 3 plane MIP reconstruct ions were produced. NASCET like criteria were used in this evaluation. The carotid bifurcations demonstrate no evidence of carotid bifurcation stenosis or significant abnor mality. Internal and common carotid arteries are unremarkable. Vertebral arteries are relatively hypoplastic on a developmental basis, but otherwise unremarkable. Visualized portions of the aortic arch are unremarkable. IMPRESSION: No significant abnormality. No evidence of carotid bifurcation stenosis. All CT scans at this location are performed using dose reduction to ALARA by means of automated expos ure control. Signer Name: Felipe Lorenz MD Signed: 10/17/2019 6:50 PM Workstation Name: [id number]
--- NOTE | 2019-10-17 19:01 | Cat Scan Report ---
HEAD CT ANGIOGRAM 10/17/2019 HISTORY: Weakness FINDINGS: Contrast-enhanced CT angiographic images of the intracranial circulation were obtained. In addition to the axial images, sagittal and coronal reformatted images were obtained. In addition, 3 p elvia MIP reconstructions were produced. There is no evidence of acute abnormality. Vascular contours are unremarkable the level of the skull base and [place] of [place]. There is no evidence of vessel occlusion or significant stenosis. Vertebral basilar system is unremarkable. The basilar artery is relatively hypoplastic on a developme ntal basis, with prominent bilateral posterior communicating arteries noted. This is a normal variant . IMPRESSION: No significant abnormality. All CT scans at this location are performed using dose reduction to ALARA by means of automated expos ure control. Signer Name: Felipe Lorenz MD Signed: 10/17/2019 6:57 PM Workstation Name: [id number]
--- NOTE | 2019-10-17 19:05 | Emergency Department Report ---
ED General Adult HPI - General Chief complaint: Neuro Symptoms/Deficit Stated complaint: POSS STROKE Time Seen by Provider: 10/17/19 16:20 Source: patient Mode of arrival: Stretcher Limitations: No Limitations - History of Present Illness Initial comments: [facility] Tele[facility]urology [facility] Date of Service: 10/17/2019 16:18:25 Impression: Acute Ischemic Stroke L hemispheric subcortical Comments: not iv tpa candidate as recurrence of sxs from prior to 1100 am, with lkw greater than 4.5 hrs and resolution of sxs again. Low suspicion for large vessel occlusive disease Metrics: Last Known Well: 10/17/2019 11:00:00 [employer] Notification Time: 10/17/2019 16:16:13 Arrival Time: 10/17/2019 14:56:00 Stamp Time: 10/17/2019 16:18:25 Time First Login Attempt: 10/17/2019 16:26:00 Video Start Time: 10/17/2019 16:26:00 Symptoms: N/V/AMS NIHSS Start Assessment Time: 10/17/2019 16:29:00 Patient is not a candidate for tPA. Patient was not deemed candidate for tPA thrombolytics because of Last Well Known Above 4.5 Hours. Video End Time: 10/17/2019 16:37:00 CT head showed evolving subcortical stroke in left hemisphere. Advanced imaging will obtained to evaluate intracranial/extracranial vessels and reached out to radiology and prelim report negative for critical stenosis intra/extracranially - no LVO (call back from radiology [id number]) ER Physician notified of the decision on thrombolytics management on 10/17/2019 16:38:00 Our recommendations are outlined below. Recommendations: Activate Stroke Protocol Admission/Order Set Stroke/Telemetry Floor Neuro Checks Bedside Swallow Eval DVT Prophylaxis IV Fluids, Normal Saline Head of Bed Below 30 Degrees Euglycemia and Avoid Hyperthermia (PRN Acetaminophen) Antiplatelet Therapy Recommended iv fluids, telemetry, prn meds for nausea Recommended Scan: MRI Head Without Contrast Echocardiogram - Transthoracic Echocardiogram Lipid Panel to Be Obtained, if Not Done in the Last Three Months Therapies: Physical Therapy, Occupational Therapy, Speech Therapy Assessment When Applicable Dysphaghia Screen: Swallow Evaluation, Bedside NPO Until Swallow Evaluation DVT prophylaxis: Choice of Primary Team Disposition: If needed consider Follow up with Neurology as inpatient. Sign Out: Discussed with Emergency Department Provider History of Present Illness: Patient is a 54 year old Male. Patient was brought by EMS for symptoms of N/V/AMS Patient was seen as a stroke this am with R sided weakness/numbness and nausea/vomiting. He had resolution of sxs and CT scan head was negative and he was d/c'd him. He had nausea/vomiting and R sided sxs again with confusion and EMS was called to the house. BP 113/76, pulse of 76, and BGL 162, and in ED bp 100/64. He had projectile vomit in ED and has now near resolution of sxs again. He is able to state his name, month, where he is, follow all commands, repeat statement and name objects. He provides no additional hx as to whether he has abraham/cp/neck pain/dizziness. CT head showed no acute hemorrhage or acute core infarct. Examination: BP(see hpi), Pulse(see hpi), Blood Glucose(see hpi) 1A: Level of Consciousness - Alert; keenly responsive + 0 1B: Ask Month and Age - Both Questions Right + 0 1C: Blink Eyes & Squeeze Hands - Performs Both Tasks + 0 2: Test Horizontal Extraocular Movements - Normal + 0 3: Test Visual Malone - No Visual Loss + 0 4: Test Facial Palsy (Use Grimace if Obtunded) - Normal symmetry + 0 5A: Test Left Arm Motor Drift - No Drift for 10 Seconds + 0 5B: Test Right Arm Motor Drift - No Drift for 10 Seconds + 0 6A: Test Left Leg Motor Drift - No Drift for 5 Seconds + 0 6B: Test Right Leg Motor Drift - No Drift for 5 Seconds + 0 7: Test Limb Ataxia (FNF/Heel-Alegria) - No Ataxia + 0 8: Test Sensation - Normal; No sensory loss + 0 9: Test Language/Aphasia - Normal; No aphasia + 0 10: Test Dysarthria - Normal + 0 11: Test Extinction/Inattention - No abnormality + 0 NIHSS Score: 0 Patient was informed the Neurology Consult would happen via TeleHealth consult by way of interactive audio and video telecommunications and consented to receiving care in this manner. Due to the immediate potential for life-threatening deterioration due to underlying acute neurologic illness, I spent 35 minutes providing critical care. This time includes time for face to face visit via telemedicine, review of medical records, imaging studies and discussion of findings with providers, the patient and/or family. Dr Chanel Sharma [facility] Case [id number] - Related Data Previous Rx's Medication Instructions Recorded Last Taken Type Aspirin 325 mg PO QDAY #30 tablet 10/17/19 Unknown Rx Ibuprofen [Motrin] 400 mg PO Q8H PRN #24 tablet 10/17/19 Unknown Rx Simvastatin 20 mg PO QHS #30 tablet 10/17/19 Unknown Rx amLODIPine 5 mg PO DAILY #30 tab 10/17/19 Unknown Rx hydroCHLOROthiazide [Hctz] 12.5 mg PO QDAY #30 capsule 10/17/19 Unknown Rx Allergies Allergy/AdvReac Type Severity Reaction Status Date / Time No Known Allergies Allergy Unverified 12/12/18 20:27 ED Review of Systems ROS: Stated complaint: POSS STROKE Other details as noted in HPI Constitutional: weakness. denies: chills, fever Eyes: denies: eye pain, eye discharge, vision change ENT: denies: ear pain, throat pain Respiratory: denies: cough, shortness of breath, wheezing Cardiovascular: denies: chest pain, palpitations Endocrine: no symptoms reported Gastrointestinal: denies: abdominal pain, nausea, diarrhea Genitourinary: denies: urgency, dysuria Musculoskeletal: denies: back pain, joint swelling, arthralgia Skin: denies: rash, lesions Neurological: weakness. denies: headache, paresthesias Psychiatric: denies: anxiety, depression Hematological/Lymphatic: denies: easy bleeding, easy bruising ED Past Medical Hx - Past Medical History Previous Medical History?: Yes Hx Hypertension: Yes - Surgical History Past Surgical History?: No - Social History Smoking Status: Never Smoker Substance Use Type: None - Medications Home Medications: Home Medications Medication Instructions Recorded Confirmed Last Taken Type Aspirin 325 mg PO QDAY #30 tablet 10/17/19 Unknown Rx Ibuprofen [Motrin] 400 mg PO Q8H PRN #24 tablet 10/17/19 Unknown Rx Simvastatin 20 mg PO QHS #30 tablet 10/17/19 Unknown Rx amLODIPine 5 mg PO DAILY #30 tab 10/17/19 Unknown Rx hydroCHLOROthiazide [Hctz] 12.5 mg PO QDAY #30 capsule 10/17/19 Unknown Rx ED Physical Exam - General Limitations: No Limitations General appearance: alert, in no apparent distress ED Course Vital Signs 10/17/19 10/17/19 10/17/19 16:30 16:31 16:45 Temperature 98.9 F Pulse Rate 91 H 75 Respiratory 18 Rate Blood Pressure 100/58 100/64 105/62 Blood Pressure 108/64 [Right] O2 Sat by Pulse 100 Oximetry ED Medical Decision Making - Lab Data Result diagrams: 10/17/19 18:02 10/17/19 16:45 Critical care attestation.: If time is entered above; I have spent that time in minutes in the direct care of this critically ill patient, excluding procedure time. ED Disposition Clinical Impression: Stroke (cerebrum) Disposition: [id number] OP ADMIT IP TO THIS HOSP Is pt being admited?: Yes Condition: Critical Referrals: MATT WRIGHT MD [Primary Care Provider] - 3-5 Days
[2019-10-17] MEDS ORDERED: MAGNESIUM HYDROXIDE (MOM) ORAL LIQD UDC PO PRN (19:08)
[2019-10-17] MEDS ORDERED: ACETAMINOPHEN 325 MG TAB PO PRN (19:08)
[2019-10-17] MEDS ORDERED: ONDANSETRON 4 MG/2 ML INJ IV PRN (19:08)
[2019-10-17] MEDS ORDERED: PROMETHAZINE 25 MG RECT SUPP PR PRN (19:08)
[2019-10-17] MEDS ORDERED: METOCLOPRAMIDE 10 MG TAB PO PRN (19:08)
--- NOTE | 2019-10-17 19:13 | History and Physical Report ---
History of Present Illness Chief complaint: I feel weak History of present illness: 54 YO Male with HTN represents to ED for reevaluation. Pt now reports that he experienced right side weakness, slurred speech, and right sided facial droop that began 4.5 hours prior to presentation and subsequently resolved and recurr ed. Pt was seen and evaluated in ED earlier today and discharged home. Pt states that he now has progressively worsening of the aforementioned symptoms. Pt states that his weakness is improved with rest. A code stroke was called and Teleneurology consulted in ED. Pt placed in observation status, and admitted to telemetry for evaluation of suspected CVA. Pt denies fever, chills, CP,Palpitations, NVD, shortness of breath, unilateral leg swelling, calf pain, productive cough, or recent ill contacts. No prior admission for review. Past History Past Medical History: other (see hpi) Past Surgical History: No surgical history, Other (reviewed) Social history: single. denies: smoking, alcohol abuse, prescription drug abuse Family history: no significant family history, other (reviewed) Medications and Allergies Allergies Allergy/AdvReac Type Severity Reaction Status Date / Time No Known Allergies Allergy Unverified 12/12/18 20:27 Home Medications Medication Instructions Recorded Confirmed Last Taken Type Aspirin 325 mg PO QDAY #30 tablet 10/17/19 10/17/19 Unknown Rx Simvastatin 20 mg PO QHS #30 tablet 10/17/19 10/17/19 Unknown Rx amLODIPine 5 mg PO DAILY #30 tab 10/17/19 10/17/19 Unknown Rx hydroCHLOROthiazide [Hctz] 12.5 mg PO QDAY #30 capsule 10/17/19 10/17/19 Unknown Rx Active Meds: Active Medications Acetaminophen (Tylenol) 650 mg PO Q4H PRN PRN Reason: Pain, Mild (1-3) Aspirin (Aspirin) 325 mg PO QDAY MACEY Atorvastatin Calcium (Lipitor) 40 mg PO QHS MACEY Bisacodyl (Dulcolax) 10 mg [place] QDAY PRN PRN Reason: Constipation Clopidogrel Bisulfate (Plavix) 75 mg PO QDAY MACEY Magnesium Hydroxide (Milk Of Magnesia) 30 ml PO Q4H PRN PRN Reason: Constipation Metoclopramide HCl (Reglan) 10 mg PO Q6H PRN PRN Reason: Nausea And Vomiting Ondansetron HCl (Zofran) 4 mg IV Q8H PRN PRN Reason: Nausea And Vomiting Promethazine HCl (Phenergan) 25 mg [place] Q6H PRN PRN Reason: Nausea And Vomiting Sodium Chloride (Sodium Chloride Flush Syringe 10 Ml) 10 ml INJ PRN PRN PRN Reason: LINE FLUSH Review of Systems Constitutional: no weight loss, no weight gain, no fever, no sweats Ears, nose, mouth and throat: no ear pain, no tinnitis, no decreased hearing, no nose pain, no nasal congestion Cardiovascular: no orthopnea, no palpitations, no rapid/irregular heart beat, no syncope, no shortness of breath Respiratory: no cough, no cough with sputum, no excessive sputum, no hemoptysis Gastrointestinal: no abdominal pain, no nausea, no vomiting, no diarrhea Genitourinary Male: no hematuria, no discharge, no urinary frequency, no urinary hesitancy, no nocturia Rectal: no pain, no incontinence, no bleeding, no itching Musculoskeletal: no neck stiffness, no neck pain, no arm numbness/tingling, no low back pain, no leg numbness/tingling, no redness of joints Integumentary: no rash, no pruritis, no sores, no wounds, no boils Neurological: weakness, change in speech, no head injury, no transient paralysis, no tingling, no syncope, no ataxia, no lack of coordination, no gait dysfunction, no motor disturbance, no sensory deficit, no loss of vision Psychiatric: no anxiety, no memory loss, no change in sleep habits, no sleep disturbances, no insomnia, no change in appetite, no change in libido, no suicidal ideation, no disorientation Endocrine: no cold intolerance, no excessive thirst, no polyuria, no excessive sweating Hematologic/Lymphatic: no easy bruising, no easy bleeding, no lymphadenopathy, no lymphedema Allergic/Immunologic: no urticaria, no anaphylaxis Exam - Constitutional Vitals: Temp Pulse Resp BP Pulse Ox 98.9 F 75 18 105/62 100 10/17/19 16:30 10/17/19 16:45 10/17/19 16:30 10/17/19 16:45 10/17/19 16:30 General appearance: Present: obese - EENT Eyes: Present: PERRL ENT: hearing intact, clear oral mucosa - Neck Neck: Present: supple, normal ROM - Respiratory Respiratory effort: normal Respiratory: bilateral: CTA - Cardiovascular Heart Sounds: Present: S1 & S2. Absent: rub, click - Extremities Extremities: pulses symmetrical, No edema Peripheral Pulses: within normal limits - Abdominal General gastrointestinal: Present: soft, non-tender, non-distended, normal bowel sounds Male genitourinary: Present: normal - Integumentary Integumentary: Present: clear, warm, dry - Musculoskeletal Musculoskeletal: gait normal, strength equal bilaterally - Psychiatric Psychiatric: appropriate mood/affect, intact judgment & insight - Neurologic Neurologic: CNII-XII intact, moves all extremities Results - Labs CBC & Chem 7: 10/17/19 18:02 10/17/19 16:45 Labs: Abnormal lab results 10/17/19 10/17/19 10/17/19 Range/Units 16:45 16:45 18:02 RBC 5.15 H (3.65-5.03) M/mm3 APTT 21.1 L (24.2-36.6) Sec. Carbon Dioxide 18 L (22-30) mmol/L Creatinine 1.6 H (0.8-1.5) mg/dL Glucose 134 H (75-100) mg/dL Assessment and Plan - Patient Problems (1) CVA (cerebral vascular accident) Current Visit: Yes Status: Acute Qualifiers: Laterality of affected vessel: unspecified Plan to address problem: CVA protocol: CT head, Carotid doppler, PT/OT/Speech Therapy, Echo, DAPT, Neurology consulted, lipid panel, blood pressure control, swallow evaluation, st atin therapy, (2) HTN (hypertension) Current Visit: Yes Status: Acute Qualifiers: Hypertension type: essential hypertension Qualified Code(s): I10 - Essential (primary) hypertension Plan to address problem: Monitor bp q shift, continue medical management. (3) Obesity Current Visit: Yes Status: Acute Qualifiers: Body mass index: BMI 35.0-35.9 Plan to address problem: Balanced diet, increased physical activity at discharge, (4) DVT prophylaxis Current Visit: Yes Status: Acute Plan to address problem: SCD to BLE while in bed, Pt ambulatory
[2019-10-17] MEDS ORDERED: ONDANSETRON 4 MG/2 ML INJ IV ONE (19:19)
[2019-10-17] MEDS: CLOPIDOGREL 75 MG TAB PO SCH (23:25)
[2019-10-18] MEDS ORDERED: MORPHINE 2 MG/1 ML INJ IV PRN (08:26)
[2019-10-18 08:46] LABS: Chol/HDL Ratio 6.84 %
[2019-10-18] MEDS: ASPIRIN 325 MG TAB PO SCH (10:31)
[2019-10-18] MEDS: CLOPIDOGREL 75 MG TAB PO SCH (10:32)
[2019-10-18] MEDS ORDERED: FLU VACC QUAD 2019-20 (3 YR UP)/PF 60 MCG/0.5 ML SYRINGE IM ONE (12:00)
--- NOTE | 2019-10-18 12:31 | Progress Note ---
Assessment and Plan Assessment and plan: 54-year-old male patient was admitted through emergency room with right-sided weakness slurring of speech right facial drooping Stroke code was called not a candidate for TPA, neuro work-up is in progress. Neurology following the patient --Acute CVA (cerebral vascular accident) Current Visit: Yes Status: Acute CVA protocol: Not a candidate for TPA , aspirin and statin Neuro work-up is in progress , physical therapy occupational therapy speech therapy , rehabilitation Follow MRI -- HTN (hypertension) Current Visit: Yes Status: Acute Permissive hypertension for 24 to 48 hours monitor bp q shift, continue medical management. --Dyslipidemia; Low-cholesterol diet, high intensity statin -- Obesity; BMI 32.2 Current Visit: Yes Status: Acute Balanced diet, increased physical activity at discharge, Weight reduction when medically stable -- DVT prophylaxis Current Visit: Yes Status: Acute SCD to BLE while in bed, Lovenox Disposition; possible discharge in 1 to 2 days if stable History Interval history: Patient seen and examined medical records reviewed Patient was admitted with right-sided weakness, right facial droop Slurred speech, code stroke, neuro work-up is in progress Patient feels slightly better still has right facial weakness and slurred speech Vital signs reviewed Hospitalist Physical - Constitutional Vitals: Temp Pulse Resp BP Pulse Ox 98.6 F 81 18 154/91 94 10/18/19 08:18 10/18/19 08:18 10/18/19 08:18 10/18/19 08:18 10/18/19 08:18 General appearance: Present: no acute distress, well-nourished, obese - EENT Eyes: Present: PERRL, EOM intact - Neck Neck: Present: supple, normal ROM, enlarged thyroid, masses or JVD - Respiratory Respiratory effort: normal Respiratory: bilateral: diminished, negative: rales, rhonchi, wheezing - Cardiovascular Rhythm: regular Heart Sounds: Present: S1 & S2 - Extremities Extremities: no ischemia, No edema - Abdominal General gastrointestinal: soft, non-tender, non-distended, normal bowel sounds - Integumentary Integumentary: Present: clear, warm - Psychiatric Psychiatric: appropriate mood/affect - Neurologic Neurologic: moves all extremities, other (Right-sided weakness) Results - Labs CBC & Chem 7: 10/17/19 18:02 10/17/19 16:45 Labs: Laboratory Last Values WBC 10.3 K/mm3 (4.5-11.0) 10/17/19 18:02 RBC 5.15 M/mm3 (3.65-5.03) H 10/17/19 18:02 Hgb 15.2 gm/dl (11.8-15.2) 10/17/19 18:02 Hct 44.8 % (35.5-45.6) 10/17/19 18:02 MCV 87 fl (84-94) 10/17/19 18:02 MCH 30 pg (28-32) 10/17/19 18:02 MCHC 34 % (32-34) 10/17/19 18:02 RDW 14.2 % (13.2-15.2) 10/17/19 18:02 Plt Count 174 K/mm3 (140-440) 10/17/19 18:02 Lymph % (Auto) [place] 10/17/19 18:02 [place] % (Auto) [place] 10/17/19 18:02 Eos % (Auto) [place] 10/17/19 18:02 Baso % (Auto) [place] 10/17/19 18:02 Lymph # [place] 10/17/19 18:02 [place] # [place] 10/17/19 18:02 Eos # [place] 10/17/19 18:02 Baso # [place] 10/17/19 18:02 Seg Neutrophils % [place] 10/17/19 18:02 Seg Neutrophils # [place] 10/17/19 18:02 PT 13.5 Sec. (12.2-14.9) 10/17/19 16:45 INR 1.02 (0.87-1.13) 10/17/19 16:45 APTT 21.1 Sec. (24.2-36.6) L 10/17/19 16:45 Thrombin Time 15.2 Sec. (15.1-19.6) 10/17/19 16:45 Sodium 140 mmol/L (137-145) 10/17/19 16:45 Potassium 4.2 mmol/L (3.6-5.0) 10/17/19 16:45 Chloride 103.1 mmol/L (98-107) 10/17/19 16:45 Carbon Dioxide 18 mmol/L (22-30) L 10/17/19 16:45 Anion Gap 23 mmol/L 10/17/19 16:45 BUN 18 mg/dL (9-20) 10/17/19 16:45 Creatinine 1.6 mg/dL (0.8-1.5) H 10/17/19 16:45 Estimated GFR 55 ml/min 10/17/19 16:45 BUN/Creatinine Ratio 11 % 10/17/19 16:45 Glucose 134 mg/dL (75-100) H 10/17/19 16:45 POC Glucose 85 (70-105) 10/18/19 08:27 Calcium 9.6 mg/dL (8.4-10.2) 10/17/19 16:45 Troponin T < 0.010 ng/mL (0.00-0.029) 10/17/19 16:45 Triglycerides 148 mg/dL (2-149) 10/18/19 06:55 Cholesterol 308 mg/dL (50-199) H 10/18/19 06:55 LDL Cholesterol Direct 240 mg/dL (50-130) H 10/18/19 06:55 HDL Cholesterol 45 mg/dL (40-59) 10/18/19 06:55 Cholesterol/HDL Ratio 6.84 % 10/18/19 06:55 Active Medications - Current Medications Current Medications: Generic Name Dose Route Start Last Admin Trade Name Freq PRN Reason Stop Dose Admin Acetaminophen 650 mg 10/17/19 19:08 Tylenol PO Q4H PRN Pain, Mild (1-3) Aspirin 325 mg 10/18/19 10:00 10/18/19 10:31 Aspirin PO Not Given QDAY [facility] Atorvastatin Calcium 40 mg 10/17/19 22:00 10/17/19 23:25 Lipitor PO 40 mg QHS [facility] Administration Bisacodyl 10 mg 10/17/19 19:08 Dulcolax [place] QDAY PRN Constipation Clopidogrel Bisulfate 75 mg 10/17/19 20:11 10/18/19 10:32 Plavix PO Not Given QDAY [facility] Magnesium Hydroxide 30 ml 10/17/19 19:08 Milk Of Magnesia PO Q4H PRN Constipation Metoclopramide HCl 10 mg 10/17/19 19:08 Reglan PO Q6H PRN Nausea And Vomiting Morphine Sulfate 2 mg 10/18/19 08:26 10/18/19 08:47 Morphine IV 2 mg Q6H PRN Administration Pain, Moderate (4-6) Ondansetron HCl 4 mg 10/17/19 19:08 Zofran IV Q8H PRN Nausea And Vomiting Promethazine HCl 25 mg 10/17/19 19:08 Phenergan [place] Q6H PRN Nausea And Vomiting Sodium Chloride 10 ml 10/17/19 19:08 Sodium Chloride Flush Syringe 10 Ml IV PRN PRN LINE FLUSH
--- NOTE | 2019-10-18 12:43 | Consultation ---
History of Present Illness Consult date: 10/18/19 Reason for Consult: Stroke Chief complaint: Right sided weakness, slurred speech, right facial droop History of present illness: Patient is a 54 y/o man w/ a h/o HTN, HLD. He presented yesterday with symptoms of right sided weakness, slurred speech, right facial droop, which began at about 11am. Patient's symptoms had resolved by the time he presented in ER, and patient was discharged home with plan for outpatient follow up. His symptoms recurred, after which he came back to the hospital. Patient's symptoms persist today. He states that he was previously diagnosed with HTN, however did not take any medications, as he has been non-compliant. Past History Past Medical History: hypertension, hyperlipidemia, other (see hpi) Past Surgical History: No surgical history, Other (reviewed) Social history: no significant social history, single. denies: smoking, alcohol abuse, prescription drug abuse Family history: no significant family history, other (reviewed) Medications and Allergies Allergies Allergy/AdvReac Type Severity Reaction Status Date / Time No Known Allergies Allergy Unverified 12/12/18 20:27 Home Medications Medication Instructions Recorded Confirmed Last Taken Type Aspirin 325 mg PO QDAY #30 tablet 10/17/19 10/17/19 Unknown Rx Simvastatin 20 mg PO QHS #30 tablet 10/17/19 10/17/19 Unknown Rx amLODIPine 5 mg PO DAILY #30 tab 10/17/19 10/17/19 Unknown Rx hydroCHLOROthiazide [Hctz] 12.5 mg PO QDAY #30 capsule 10/17/19 10/17/19 Unknown Rx Active Meds: Active Medications Acetaminophen (Tylenol) 650 mg PO Q4H PRN PRN Reason: Pain, Mild (1-3) Aspirin (Aspirin) 325 mg PO QDAY [facility] Last Admin: 10/18/19 10:31 Dose: Not Given Documented by: Atorvastatin Calcium (Lipitor) 40 mg PO QHS [facility] Last Admin: 10/17/19 23:25 Dose: 40 mg Documented by: Bisacodyl (Dulcolax) 10 mg [place] QDAY PRN PRN Reason: Constipation Clopidogrel Bisulfate (Plavix) 75 mg PO QDAY [facility] Last Admin: 10/18/19 10:32 Dose: Not Given Documented by: Magnesium Hydroxide (Milk Of Magnesia) 30 ml PO Q4H PRN PRN Reason: Constipation Metoclopramide HCl (Reglan) 10 mg PO Q6H PRN PRN Reason: Nausea And Vomiting Morphine Sulfate (Morphine) 2 mg IV Q6H PRN PRN Reason: Pain, Moderate (4-6) Last Admin: 10/18/19 08:47 Dose: 2 mg Documented by: Ondansetron HCl (Zofran) 4 mg IV Q8H PRN PRN Reason: Nausea And Vomiting Promethazine HCl (Phenergan) 25 mg [place] Q6H PRN PRN Reason: Nausea And Vomiting Sodium Chloride (Sodium Chloride Flush Syringe 10 Ml) 10 ml IV PRN PRN PRN Reason: LINE FLUSH Review of Systems All systems: negative Neurological: weakness, numbness, change in speech Physical Examination - Vital Signs Vital Signs: Vital Signs Temp Pulse Resp BP Pulse Ox 98.5 F 87 18 108/64 100 10/17/19 16:30 10/17/19 16:30 10/17/19 16:30 10/17/19 16:30 10/17/19 16:30 - Physical Exam Narrative exam: Patient is awake, alert, oriented x4, follows complex commands. No notable dysarthria or aphasia. PERRL, EOMI, VFF, b/l intact to LT, tongue midline, noted to have Rt. NLF flattening. 4/5 in RUE/RLE, 5/5 in LUE/LLE. Decreased to LT on RUE/RLE. B/l intact to FTN and HTS. 2+ reflexes throughout. - Constitutional General appearance: comfortable - EENT EENT: Present: ATNC, PERRL, mucous membranes moist, hearing intact, vision intact - Respiratory Respiratory: Present: lungs clear, normal breath sounds - Cardiovascular Cardiovascular: Present: regular rate, normal S1, normal S2 Extremities: Present: no clubbing, cyanosis, no inflammation - Gastrointestinal Gastrointestinal: Present: normoactive bowel sounds, soft, non-tender - Integumentary Integumentary: Present: normal - Level of Consciousness 1a. Level of Consciousness: alert/keenly responsive - LOC Questions 1b. LOC Questions: answers both correctly - LOC Command 1c. LOC Commands: performs tasks correctly - Best Gaze 2. Best Gaze: normal - Visual 3. Visual: no visual loss - Facial Palsy 4. Facial Palsy: minor paralysis - Motor Arm 5a. Motor Arm Left: no drift 5b. Motor Arm Right: no drift - Motor Leg 6a. Motor Leg Left: no drift 6b. Motor Leg Right: no drift - Limb Ataxia 7. Limb Ataxia: absent - Sensory 8. Sensory: mild/moderate sensory loss - Best Language 9. Best Language: no aphasia - Dysarthria 10. Dysarthria: normal - Extinction and Inattention 11. Extinction/Inattention: no abnormality - Scoring Total Score: 2 Stroke Severity: Minor Stroke Results - Laboratory Findings CBC and BMP: 10/17/19 18:02 10/17/19 16:45 Abnormal Lab Findings: Abnormal Labs 10/17/19 10/17/19 10/17/19 16:45 16:45 18:02 RBC 5.15 H APTT 21.1 L Carbon Dioxide 18 L Creatinine 1.6 H Glucose 134 H Cholesterol LDL Cholesterol Direct 10/18/19 06:55 RBC APTT Carbon Dioxide Creatinine Glucose Cholesterol 308 H LDL Cholesterol Direct 240 H Assessment and Plan Patient is a 54 y/o man w/ a h/o HTN, HLD, who p/w RUE/RLE weakness, slurred speech, and Rt. facial droop. According to the patient's clinical findings, he has had an acute ischemic stroke. Plan: 1. Stroke: - CT head showed left subcortical stroke - MRI brain pending - Echo pending - CTA head/neck: no significant stenosis - LDL 240. Cont. statin - Cont. ASA - Telemetry monitoring while in house - PT/OT/ST - DVT Ppx: recommend lovenox 2. Hypertension: - Recommend BP goal of <220/120 for next 24 hours, after which can target normotension. - Will continue to follow patient. Thank you for allowing me to take part in the care of this patient. Adan Ramos MD Neurology
--- NOTE | 2019-10-18 20:35 | Magnetic Resonance Report ---
MR brain wo con INDICATION / CLINICAL INFORMATION: 54 years Male; acute CVA. TECHNIQUE: Multiplanar, multisequence MR images of the brain were obtained. COMPARISON: CT - 10/17/2019 FINDINGS: BRAIN / INTRACRANIAL CONTENTS: Ischemic changes seen in the left corpus striatal region. Otherwise, no acute hemorrhage, mass effect, midline shift, hydrocephalus, or acute, large territori al infarct. No chronic infarct or atrophy. No significant white matter abnormality. CRANIOCERVICAL JUNCTION: No significant abnormality. VASCULAR FLOW-VOIDS: No significant abnormality. ORBITS: No significant abnormality of visualized orbits. SINUSES / MASTOIDS: No significant abnormality the visualized paranasal sinuses or mastoid air cells. ADDITIONAL FINDINGS: None. IMPRESSION: 1. Moderately sized ischemic changes in the left corpus striatal region without signs of hemorrhagic transformation. Signer Name: Joey Curry MD, III Signed: 10/18/2019 8:30 PM Workstation Name: [id number]
[2019-10-19 05:55] LABS: BUN/Creatinine Ratio 18; Blood Urea Nitrogen 22 mg/dL (9-20); Calcium 9.3 mg/dL (8.4-10.2); Hemolysis Index 5
[2019-10-19] MEDS: ASPIRIN 325 MG TAB PO SCH (09:28)
[2019-10-19] MEDS: CLOPIDOGREL 75 MG TAB PO SCH (09:28)
--- NOTE | 2019-10-19 11:16 | Vascular Lab Report ---
DUPLEX DOPPLER CAROTID BILATERAL Indication: stroke. Right-sided hemiplegia. Technique: Routine duplex Doppler carotid bilateral per protocol. Findings: There is mild scattered atherosclerotic plaque within both common and internal carotid arteries. Both vertebral arteries are patent with antegrade flow. Right CCA velocity is 121 cm/sec. Right ICA peak systolic velocity is 93 cm/sec. Right ICA end-diastolic velocity is 36 cm/sec. Systolic velocity ratio is 0.8. There is no significant spectral broadening. Left CCA velocity is 99 cm/sec. Left ICA peak systolic velocity is 106 cm/sec. Left ICA end-diastolic velocity is 38 cm/sec. Systolic velocity ratio is 1.1. There is no significant spectral broadening. Impression: No hemodynamically significant stenosis of either carotid artery using criteria similar to NASCET. Signer Name: Guille Moyer MD Signed: 10/19/2019 11:03 AM Workstation Name: [email or web address]
--- NOTE | 2019-10-19 12:20 | Discharge Summary ---
Providers - Providers Date of Admission: 10/18/19 10:13 Date of discharge: 10/19/19 Attending physician: KARMA REYES 10/17/19 19:08 Consult to Case Management [CONS] Routine Services Needed at Discharge: Park Manager Notified:: EMERITA Modi Physician Instructions: d/c planning Occupational Therapy Evaluate and Treat [CONS] Routine Comment: Reason For Exam: Neuro deficits Physical Therapy Evaluation and Treat [CONS] Routine Comment: Reason For Exam: Neuro deficits 10/17/19 19:14 Consult to Physician [CONS] Routine Comment: Consulting Provider: MERA BIANCHI Physician Instructions: Reason For Exam: cva 10/17/19 20:24 Speech Therapy Evaluation and Treat [CONS] Routine Reason For Exam: failed swollow eval [facility] Condition: Stable Hospital course: Patient is a 54-year-old male patient was admitted through emergency room with right-sided weakness slurring of speech right facial drooping Stroke code was called not a candidate for TPA, neuro work-up is in progress. Neurology following the patient --Acute CVA (cerebral vascular accident) Current Visit: Yes Status: Acute CVA protocol: Not a candidate for TPA , aspirin and statin Neuro work-up is in progress , physical therapy occupational therapy speech therapy , rehabilitation MRI+ for stroke Left -- HTN (hypertension) Current Visit: Yes Status: Acute Permissive hypertension for 24 to 48 hours monitor bp q shift, continue medical management. --Dyslipidemia Low-cholesterol diet, high intensity statin -- Obesity; BMI 32.2 Current Visit: Yes Status: Acute Balanced diet, increased physical activity at discharge, Weight reduction when medically stable --DVT prophylaxis Current Visit: Yes Status: Acute SCD to BLE while in bed, Lovenox Disposition; d/c home Disposition: DC-01 TO HOME OR SELFCARE Time spent for discharge: 35 minutes Core Measure Documentation - Palliative Care Palliative Care/ Comfort Measures: Not Applicable - Core Measures Any of the following diagnoses?: stroke - VTE Discharge Requirements Deep Vein Thrombosis/Pulmonary Embolism Present on Admission: No Has pt received <5 days of overlap therapy or INR<2.0: No Anticoagulant overlap therapy prescribed at discharge: No Contraindication No Overlap Therapy order at DC: Not Indicated - Stroke Discharge Requirements Statin for LDL = or >70 mg/dl on DC: Yes Anticoag for atrial fib/atrial flutter: No Reason for no anticoag for AF/F on DC: Not Indicated Antithrombotic for ischemic stroke: Yes Exam - Physical Exam Narrative exam: Gen: WDWN, NAD, Awake, Alert, Orientated HEENT: NCAT, EOMI, PERRL, OP Clear Neck: supple, no adenopathy, no thyromegaly, no JVD CVS/Heart: RRR, normal S1S2, pulses present bilaterally Chest/Lungs: CTA B, Symmetrical chest expansion, good air entry bilaterally GI/Abdomen: soft, NTND, good bowel sounds, no guarding or rebound /Bladder: no suprapubic tenderness, no CVA or paraspinal tenderness Extermity/Skin: no c/c/e, no obvious rash MSK: FROM x 4, mild 4+/5 rue/lue strength Neuro: CN 2-12 grossly intact, no new focal deficits Psych: calm - Constitutional Vitals: Temp Pulse Resp BP Pulse Ox 98.5 F 81 18 145/88 91 10/19/19 09:08 10/19/19 09:08 10/19/19 09:08 10/19/19 09:08 10/19/19 09:08 Plan Activity: no driving until cleared by PCP, other (no strenous activity unless cleared by Neurology) Diet: low salt Additional Instructions: see Dr. Barraza for 30 day event monitor. Take aspirin and plavix for 30 days then stop plavix but continue Aspirin for life Follow up with: ELVI VALENZUELA MD [Staff Physician] - 7 Days [facility] [Primary Care Provider] - 3-5 Days WALE BARRAZA MD [Staff Physician] - 7 Days Prescriptions: AtorvaSTATin [Lipitor] 2 tab PO QHS #60 tablet amLODIPine 5 mg PO DAILY #30 tab Aspirin EC [Halfprin EC] 81 mg PO QDAY #30 tablet. Clopidogrel [Plavix] 75 mg PO QDAY #30 tablet
--- NOTE | 2019-10-19 12:49 | Progress Note ---
Assessment and Plan Patient is a 54 y/o man w/ a h/o HTN, HLD, who p/w RUE/RLE weakness, slurred speech, and Rt. facial droop. According to the patient's clinical findings, he has had an acute ischemic stroke. Plan: 1. Stroke: - CT head showed left subcortical stroke - MRI brain: left subcortical stroke - Echo: EF 50-55%, LA normal size, bubble study negative. - CTA head/neck: no significant stenosis - LDL 240. Cont. statin - Cont. ASA - Telemetry monitoring while in house - PT/OT/ST - DVT Ppx: recommend lovenox - Stroke size is larger than typical lacunar stroke. Given cryptogenic etiology of stroke, recommend long-term cardiac monitoring as outpatient with 30-day MCOT or ILR. - Recommend follow up with neurology in 3-4 weeks as outpatient. 2. Hypertension: - Recommend BP goal of <220/120 for next 24 hours, after which can target normotension. - Will sign off as neurologic investigations are complete and treatment plan is in place. Please call with any questions. Thank you for allowing me to take part in the care of this patient. Adan Ramos MD Neurology Subjective Date of service: 10/19/19 Principal diagnosis: Stroke Interval history: No acute events overnight. Objective - Exam Narrative Exam: Patient is awake, alert, oriented x4, follows complex commands. No notable dysarthria or aphasia. PERRL, EOMI, VFF, b/l intact to LT, tongue midline, noted to have Rt. NLF flattening. 4/5 in RUE/RLE, 5/5 in LUE/LLE. Decreased to LT on RUE/RLE. B/l intact to FTN and HTS. 2+ reflexes throughout. - Vital Sign Vital Signs - 12hr 10/19/19 10/19/19 03:39 09:08 Temperature 98.1 F 98.5 F Pulse Rate 70 81 Respiratory 18 18 Rate Blood Pressure 116/78 145/88 O2 Sat by Pulse 97 91 Oximetry - General Apperance Constitutional: comfortable - EENT EENT: ATNC, PERRL, mucous membranes moist, hearing intact, vision intact - Respiratory Respiratory: lungs clear, normal breath sounds - Cardiovascular Cardiovascular: regular rate, normal S1, normal S2 Extremities: no clubbing, cyanosis, no inflammation - Gastrointestinal Gastrointestinal: normoactive bowel sounds, soft, non-tender - Integumentary Integumentary: normal - Musculoskeletal Musculoskeletal: no fluid collection, no pain - Psychiatric Psychiatric: mood/affect appropriate - Laboratory Findings CBC and BMP: 10/17/19 18:02 10/19/19 04:00 Abnormal Lab Findings: Abnormal Labs 10/17/19 10/17/19 10/17/19 16:45 16:45 18:02 RBC 5.15 H APTT 21.1 L Carbon Dioxide 18 L BUN Creatinine 1.6 H Glucose 134 H POC Glucose Cholesterol LDL Cholesterol Direct 10/18/19 10/18/19 10/19/19 06:55 21:12 04:00 RBC APTT Carbon Dioxide 21 L BUN 22 H Creatinine Glucose POC Glucose 140 H Cholesterol 308 H LDL Cholesterol Direct 240 H
[2019-10-19 14:53] VITALS: BP 152/100
== END 2019-10-19 18:53 | disposition home or self-care (01) | DRG 64 ==
LOC: ED 16:13 → 4A 19:08 → OBSVTOIN 10-18 10:13
PROVIDERS: ADMIT Internal Medicine; ATTEND Internal Medicine
DX: I63.9 Cerebral infarction, unspecified (principal); N17.0 Acute kidney failure with tubular necrosis; G81.91 Hemiplegia, unspecified affecting right dominant side; I10 Essential (primary) hypertension; R29.810 Facial weakness; R47.81 Slurred speech; E66.9 Obesity, unspecified; Z79.82 Long term (current) use of aspirin; Z68.35 Body mass index [BMI] 35.0-35.9, adult
CPT/HCPCS: 36415; 70450; 70496; 70498; 70551; 80048; 80061; 82962; 83036; 84484; 85025; 85610; 85670; 85730; 90686; 93005; 93010; 93306; 93880; 96374; G0378; A9270-GY; J2270; Q9967

== ENCOUNTER 2020-08-18 11:12 | Outpatient (CLI) | payer OTHER ==
[2020-08-18 11:55] LABS: Chol/HDL Ratio 3.02 %
== END 2020-08-18 11:13 | disposition home or self-care (01) ==
LOC: LAB 11:12
PROVIDERS: ATTEND Internal Medicine
DX: E78.5 Hyperlipidemia, unspecified (principal)
CPT/HCPCS: 36415; 80061

== ENCOUNTER 2020-11-17 12:38 | Outpatient (CLI) | payer OTHER ==
--- NOTE | 2020-11-17 13:38 | XRay Report ---
LEFT FEMUR 2 VIEW INDICATION / CLINICAL INFORMATION: LEFT HIP PAIN. COMPARISON: None available. FINDINGS: BONES/JOINT(S): No acute fracture or subluxation. No significant degenerative changes. SOFT TISSUES: No significant abnormality. ADDITIONAL FINDINGS: None. Signer Name: Suraj Lyons MD Signed: 11/17/2020 1:34 PM Workstation Name: [id number]
--- NOTE | 2020-11-17 13:39 | XRay Report ---
RIGHT SHOULDER 3 VIEWS INDICATION / CLINICAL INFORMATION: Right shoulder pain. COMPARISON: None available. FINDINGS: BONES/JOINT(S): No acute fracture or subluxation. Mild DJD in the AC joint. Small chronic appearing b one fragments adjacent to the acromion likely indicate remote prior injury. SOFT TISSUES: No significant abnormality. ADDITIONAL FINDINGS: None. Signer Name: Suraj Lyons MD Signed: 11/17/2020 1:34 PM Workstation Name: [id number]
== END 2020-11-17 12:39 | disposition home or self-care (01) ==
LOC: XRAY 12:38
PROVIDERS: ATTEND Orthopaedic Surgery
DX: M19.011 Primary osteoarthritis, right shoulder (principal); M25.552 Pain in left hip